=== PATIENT | male | born 1950 | race Caucasian/White ===

== ENCOUNTER → 2020-08-14 | Outpatient (CLI) | payer OTHER ==
[~2020-08-14] MED LIST: ASPI81CH; CLOP75; OMEP20ER PO
== END ==
LOC: LAB SHORT 10:46 → PLD 10:46
DX: D48.5 Neoplasm of uncertain behavior of skin (principal)
CPT/HCPCS: 88305

== ENCOUNTER 2021-06-21 08:11 | Day surgery (SDC) | payer OTHER ==
[~2021-06-21] VITALS: Ht 180.3 cm; Wt 98.2 kg
[2021-06-21] MEDS ORDERED: METF500 PO (08:54)
[2021-06-21] MEDS ORDERED: NORVASC5 MG PO (08:54)
[2021-06-21] MEDS ORDERED: ATOR40TA PO (08:54)
[2021-06-21] MEDS ORDERED: NITR.4SL SL (08:55)
[2021-06-21] MEDS ORDERED: METO25ER PO (08:55)
[2021-06-21] MEDS ORDERED: Accupril40 MG PO (08:56)
[2021-06-21] MEDS ORDERED: Imdur30 MG PO (08:56)
--- NOTE | 2021-06-21 10:29 | NUR ---
PATIENT RETURNED FROM THE CATHLAB VIA RECLINER, RIGHT RADIAL TR BAND. TR BAND WITH 12 IN THE BAND PLACED AT 1021. NO BLEEDING, NO HEMATOMA. NO PAIN NOTED FROM THE PATIENT. MONITOR APPLIED AND VVS STABLE. DR. AUHJA AT THE BEDSIDE AND SPOKE TO THE PATIENT REGARDING CATH RESULTS.
--- NOTE | 2021-06-21 11:23 | NUR ---
PATIENT UP TO THE RESTROOM. GAIT STEADY. VVS. NO PAIN, NO DIZZINESS NOTED FROM THE PATIENT. TR BAND IN PLACE. NO CHANGE IN RIGHT RADIAL SITE.
--- NOTE | 2021-06-21 12:20 | NUR ---
ATTEMPTED TO REMOVE AIR FROM THE TR BAND AND BLEEDING OCCURED. REPLACED THE AIR AND MONITORED THE TR BAND.
--- NOTE | 2021-06-21 13:13 | NUR ---
PATIENT TR BAND IS FLAT X 30 MINUTES. TR BAND REMOVED AND SITE CLEANED, CLOTH DOT PLACED AND REPLACED WHITE BOARD. DISCHARGE TEACHING PERFORMED AND COPIES GIVEN TO THE PATIENT. THE CARDIOLOGY OFFICE WAS CALLED AND REFERRAL WAS MADE TO [facility] OFFICE. PATIENT IS UP AND DRESSED SELF. GATHERED ALL BELONGINGS. WILL DISCHARGE WHEN DAUGHTER ARRIVES.
== END 2021-06-21 13:20 | disposition home or self-care (01) ==
LOC: MHTC 08:11
PROC: B2111ZZ Fluoroscopy of Multiple Coronary Arteries using Low Osmolar Contrast (ICD-10-PCS; principal; 2021-06-21)
PROC: 4A023N7 Measurement of Cardiac Sampling and Pressure, Left Heart, Percutaneous Approach (ICD-10-PCS; principal; 2021-06-21)
DX: I25.118 Atherosclerotic heart disease of native coronary artery with other forms of angina pectoris (principal); I10 Essential (primary) hypertension; E11.9 Type 2 diabetes mellitus without complications; E78.5 Hyperlipidemia, unspecified; Z79.899 Other long term (current) drug therapy; Z79.84 Long term (current) use of oral hypoglycemic drugs; Z95.5 Presence of coronary angioplasty implant and graft
CPT/HCPCS: 76937; 93458; 99152; 99153; C1769; C1894; J1644; J2250; J3010; J7030; J7050; Q9967

== ENCOUNTER → 2022-09-09 | Outpatient (CLI) | payer OTHER ==
[~2022-09-09] MED LIST changes: +ATOR40TA PO; +Accupril40 MG PO; +Imdur30 MG PO; +METF500 PO; +METO25ER PO; +NITR.4SL SL; +NORVASC5 MG PO
== END ==
LOC: LAB 08:02 → LAB SHORT 08:02
DX: D48.5 Neoplasm of uncertain behavior of skin (principal)
CPT/HCPCS: 88305

== ENCOUNTER → 2023-01-24 | Outpatient (CLI) | payer OTHER ==
[2023-01-24 13:39] LABS: U Amphetamine Screen Not Detected; U Barbituate Screen Not Detected; U Benzodiazapine Screen Not Detected; U Buprenorphine Screen Not Detected; U Cannabinoids Screen DETECTED; U Cocaine Screen Not Detected; U Methadone Screen Not Detected; U Methamphetamine Screen Not Detected; U Opiates Screen Not Detected; U Oxycodone Screen Not Detected; U Phencyclidine Screen Not Detected; U Propoxyphene Screen Not Detected
== END | disposition home or self-care (01) ==
LOC: LAB SHORT 12:36
PROVIDERS: Physician Assistant
DX: Z51.81 Encounter for therapeutic drug level monitoring (principal); Z79.899 Other long term (current) drug therapy

== ENCOUNTER 2023-11-09 19:10 | Emergency (ER) | payer OTHER ==
[~2023-11-09] VITALS: Ht 180.3 cm; Wt 102.1 kg
[2023-11-09 21:42] VITALS: BP 116/76
== END 2023-11-09 21:40 | disposition home or self-care (01) ==
LOC: ER 19:10
DX: S22.31XA Fracture of one rib, right side, initial encounter for closed fracture (principal); S80.12XA Contusion of left lower leg, initial encounter; W11.XXXA Fall on and from ladder, initial encounter; Z79.84 Long term (current) use of oral hypoglycemic drugs; Z79.899 Other long term (current) drug therapy; Z79.82 Long term (current) use of aspirin
CPT/HCPCS: 70450; 71260; 72125; 74177; 99283; Q9967

== ENCOUNTER 2025-01-13 06:47 | Day surgery (SDC) | payer OTHER ==
[~2025-01-13] VITALS: Ht 177.8 cm; Wt 94.8 kg
[2025-01-13] VITALS (19 sets, daily range): BP systolic 99–138; BP diastolic 61–90
[~2025-01-13 06:47] MED LIST changes: +Lactated Ringer's 1,000 ML IV SCH
[2025-01-13] MEDS ORDERED: propofoL 40 ML IV ONE (06:51)
[2025-01-13] MEDS ORDERED: SILD25T PO (07:04)
[2025-01-13] MEDS ORDERED: Vitamin B Comple1 EA PO (07:05)
[2025-01-13] MEDS ORDERED: Norco 10-325 T1 EACH PO (07:06)
--- NOTE | 2025-01-13 07:27 | NUR ---
Ambulatory in Day Surgery History, Chart, Medications and Allergies reviewed before start of procedure. Pre-Op teaching done. Pt verbalizes understanding. Patient States Post-Procedure ride home has been arranged.
--- NOTE | 2025-01-13 07:43 | NUR ---
01/13/25 0743 Valerie Hartmann ENDO 1 @ 0734- CONFIRMED AND REVIEWED H&P, MEDCICATIONS, ALLERGIES, MEDICAL HISTORY, RESPIRATORY HISTORY, VITAL SIGNS, 3-LEAD EKG, CONSENTS, AND PHYSICIAN ORDERS. PATIENT CONFIRMS NPO STATUS AND AGREES WITH SCHEDULED PROCEDURE. MONITOR INTACT WITH CONTINUOUS PULSE OXIMETRY, CAPNOGRAPHY, 3-LEAD EKG, INTERMITTENT BP. SUPPLEMENTAL O2 TO BE TITRATED THROUGHOUT PROCEDURE TO MAINTAIN O2 SATURATION ABOVE 90%. PATIENT DETERMINED TO BE ASA APPROPRIATE FOR PROPOFOL SEDATION PRIOR TO START OF PROCEDURE BY . MALLAMPATI CLASS 3 AIRWAY: VISUALIZATION OF ONLY THE BASE OF THE UVULA.
--- NOTE | 2025-01-13 08:34 | NUR ---
Patient up to Ambulate independently. Gait steady. Discharge instructions reviewed with patient. Patient verbalizes understanding. Copy given to patient to take home, WE[facility] FAMILY. Patient States Post-Procedure ride home has been arranged. Discharged via wheelchair to private car for ride home. PT TOLERATING PO. REPORTS READY TO GO HOME.
== END 2025-01-13 08:35 | disposition home or self-care (01) ==
LOC: ORSCMMR 06:47 → ORD 07:30 → ORSCMMR 07:30
DX: Z12.11 Encounter for screening for malignant neoplasm of colon (principal); Z86.0101 Personal history of adenomatous and serrated colon polyps; R19.5 Other fecal abnormalities; K51.40 Inflammatory polyps of colon without complications; D12.2 Benign neoplasm of ascending colon; D12.4 Benign neoplasm of descending colon; E11.9 Type 2 diabetes mellitus without complications; Z79.84 Long term (current) use of oral hypoglycemic drugs; I25.10 Atherosclerotic heart disease of native coronary artery without angina pectoris; Z79.899 Other long term (current) drug therapy
CPT/HCPCS: 82947; 88305; J2704; J7120

== ENCOUNTER → 2025-09-06 | Outpatient (CLI) | payer OTHER ==
[~2025-09-06] MED LIST changes: -Lactated Ringer's 1,000 ML IV SCH; +Norco 10-325 T1 EACH PO; +SILD25T PO; +Vitamin B Comple1 EA PO
[2025-09-06 18:00] LABS: BASOPHILS ABSOLUTE AUTO 0.05 K/mm3 (0.00-0.23); BASOPHILS PERCENT AUTO 1 % (0-2); EOSINOPHILS ABSOLUTE AUTO 0.11 K/mm3 (0.00-0.68); EOSINOPHILS PERCENT AUTO 2 % (0-6); Hematocrit 40.2 % (37.0-53.0); Hemoglobin 13.8 g/dL (13.5-17.5); IMMATURE GRAN ABSOLUTE AUTO 0.01 K/mm3 (0.00-0.10); IMMATURE GRAN PERCENT AUTO 0 % (0-1); LYMPHOCYTES ABSOLUTE AUTO 1.43 K/mm3 (0.84-5.20); LYMPHOCYTES PERCENT AUTO 25 % (21-46); MONOCYTES ABSOLUTE AUTO 0.57 K/mm3 (0.16-1.47); MONOCYTES PERCENT AUTO 10 % (4-13); Mean Corpuscular HGB Conc 34.3 g/dL (31.5-36.5); Mean Corpuscular Volume 93 fL (80-100); NEUTROPHILS ABSOLUTE AUTO 3.47 K/mm3 (1.96-9.15); NEUTROPHILS PERCENT AUTO 61 % (41-73); NRBC ABSOLUTE 0.00 K/mm3 (0.00-0.02); NRBC Auto 0.0 /100 WBC (0.0-0.2); Platelet Count 215 K/mm3 (150-400); RDW Coefficient Variation 12.0 % (11.7-14.2); RDW Standard Deviation 41.1 fL (35.1-46.3)
[2025-09-07 03:51] LABS: Alanine Aminotransfer (ALT/SGP 49 U/L (12-78); Albumin, Blood 4.1 g/dL (3.4-5.0); Albumin/Globulin Ratio 1.5 (0.8-1.8); Anion Gap 11 mmol/L (3-11); Aspartate Aminotrans (AST/SGOT 28 U/L (12-37); Bilirubin, Total 0.6 mg/dL (0.1-1.0); Blood Urea Nitrogen 18 mg/dL (8-24); CHOL/HDL RATIO 3.0; CO2, Blood 23 mmol/L (21-32); Calcium, Blood 8.9 mg/dL (8.5-10.1); Chloride, Blood 105 mmol/L (98-108); Cholesterol 108 mg/dL (50-200); Creatinine, Blood 0.83 mg/dL (0.60-1.20); Globulin, Blood 2.8 g/dL (2.2-4.0); Glucose, Blood 105 mg/dL (70-99); HDL Cholesterol 36 mg/dL (>39); LDL/HDL RATIO 1.3; Low Density Lipoprotein Chol 45 mg/dL (0-110); PSA, %Free 23.2 %; PSA, Free 0.607 ng/mL; Potassium, Blood 4.3 mmol/L (3.5-5.5); Prostate Specific Antigen 2.620 ng/mL (0.000-4.000); Sodium, Blood 135 mmol/L (136-145); Total Protein, Blood 6.9 g/dL (6.4-8.2); Triglycerides 133 mg/dL (30-160); Very Low Density Lipoprot Chol 26 mg/dL (6-32)
== END | disposition home or self-care (01) ==
LOC: LAB SHORT 16:15 → LAB 16:15
PROVIDERS: Nurse Practitioner Family
DX: E11.51 Type 2 diabetes mellitus with diabetic peripheral angiopathy without gangrene (principal); E11.59 Type 2 diabetes mellitus with other circulatory complications; E11.42 Type 2 diabetes mellitus with diabetic polyneuropathy; E11.69 Type 2 diabetes mellitus with other specified complication; N40.0 Benign prostatic hyperplasia without lower urinary tract symptoms
CPT/HCPCS: 80053; 80061; 83036; 84153; 84154; 85025